=== PATIENT | female | born 1950 | race African-American/Black ===

== ENCOUNTER 2016-08-22 11:29 | Emergency (ER) | payer MEDICARE, OTHER ==
[~2016-08-22] VITALS: Ht 149.9 cm; Wt 80.0 kg
[~2016-08-22 11:29] MED LIST: AMLO5 PO; CITA20 PO; CLON.2 PO; DOCU1CAP39 PO; ENOX30P SQ; FERR324T4 PO; GABA300 PO; HYDRA50 PO; LABE100 PO; LEVEMIR SQ; LISI20 PO; NORC10TA2 PO; NOVOLOGSS SQ; THERM PO
[2016-08-22 11:41] VITALS: BP 211/91; PULSE 69; RESP 22; TEMP 98.4; O2SAT 97
[2016-08-22 11:45] VITALS: O2SAT 96
[2016-08-22] MEDS ORDERED: SODIUM CHLOR 0.9% 1000 ML INJ 1,000 ML IV SCH (11:50)
[2016-08-22] MEDS ORDERED: SODIUM CHLORIDE 0.9% FLUSH 10 ML FLUSH IVF PRN (12:00)
--- NOTE | 2016-08-22 12:00 | PD ---
HPI Chief Complaint: Altered Mental Status Time Seen by Provider: 11:32 Travel History International Travel<30 days: No Contact w/Intl Traveler<30days: No Traveled to known affect area: No History of Present Illness HPI The patient is a 66-year-old [place] female who presents to the emergency department for altered mental status from the assisted living facility. Upon arrival the patient is oriented to person and year, but not the month, vice president of news, or current location. According to EMS, the patient's baseline is oriented 4 at the assisted living facility. The patient denies any physical complaints, however, EMS states the patient was sent to the emergency department for altered mental status. Patient has a known history of diabetes, blood glucose was 125 prior to arrival. The patient is a poor historian and no further information is obtainable from the patient. PFSH Past Medical History Hx Anticoagulant Therapy: Yes (ASPIRIN 81 DAILY) Arthritis: Yes Asthma: No Autoimmune Disease: No Blood Disorders: No Bipolar Disorder: Yes Anxiety: Yes Depression: Yes Heart Rhythm Problems: Yes Cancer: No Cardiac Catheterization: Yes (STENT X 2) Cardiovascular Problems: Yes (PVD) High Cholesterol: Yes Chemotherapy: No Chest Pain: Yes Congestive Heart Failure: No COPD: No Cerebrovascular Accident: No Diabetes: Yes Diminished Hearing: Yes Endocrine: Yes Gastrointestinal Disorders: Yes GERD: Yes Genitourinary: Yes (INCONTINENCE) Headaches: Yes Hepatitis: Yes (HEP C) Hiatal Hernia: No Hypertension: Yes Immune Disorder: No Kidney Stones: No Musculoskeletal: Yes Neurologic: Yes Psychiatric: Yes Reproductive: No Respiratory: No Migraines: No Myocardial Infarction: No Radiation Therapy: No Renal Failure: No Seizures: No Shingles: Yes Sickle Cell Disease: No Sleep Apnea: No Thyroid Disease: No Ulcer: No Past Surgical History Abdominal Surgery: No AICD: No Appendectomy: Yes Arteriovenous Shunt: No Cardiac Surgery: Yes (STENTS) Cholecystectomy: No Ear Surgery: No Endocrine Surgery: No Eye Surgery: Yes (BILATERAL CATARACTS) Genitourinary Surgery: No Gynecologic Surgery: Yes (HYSTER) Hysterectomy: Yes Insulin Pump: No Joint Replacement: No Neurologic Surgery: Yes (CAROTID ENDARTERECTOMY) Oral Surgery: No Pacemaker: No Thoracic Surgery: No Other Surgery: Yes (R GREAT TOE AND R PINKY TOE AMPUTATED-ALL L TOES AMPUTATED. ) Social History Alcohol Use: No Tobacco Use: No Substance Use: No Allergies-Medications (Allergen,Severity, Reaction): Coded Allergies: Penicillin (Verified Allergy, Severe, SWELLING, 08/22/16) Reported Meds & Prescriptions Reported Meds & Active Scripts Active Reported Zofran (Ondansetron HCl) 4 Mg Tab 4 Mg PO Q6HR PRN Ventolin Hfa 18 GM Inh (Albuterol Sulfate) 90 Mcg/Act Aer 2 Puff INH Q2HR PRN Natures Tears Opth Drops (Artificial Tear Solution Opth Drops) 0.1-0.3% Soln 1 Drop EACH EYE DAILY PRN Milk of Magnesia Liq (Magnesium Hydroxide) 400 Mg/5 Ml Susp 30 Ml PO DAILY PRN Duoneb (Ipratropium-Albuterol Neb) 0.5-2.5 Mg/3 Ml Neb 3 Ml NEB Q12HR PRN Guaifenesin Liq (Guaifenesin) 100 mg/5 ML Soln 200 Mg PO Q6H PRN Glucose Gel (Dextrose) 40 % Gel 1 Tube PO ONCE PRN Glucagon Emergency Inj Kit (Glucagon (Rdna) Inj Kit) 1 Mg Kit 1 Mg IM ONCE PRN If unable to stabilizer blood sugar with glucolse, notify Dulcolax Supp (Bisacodyl) 10 Mg Supp 10 Mg MS DAILY PRN Diphenhydramine (Diphenhydramine HCl) Unknown Strength Tab 1 Tab PO Q8HR PRN Baclofen 10 Mg Tab 10 Mg PO Q8HR PRN Novolog Inj (Insulin Aspart) 1,000 Unit/10 Ml Vial 0 SQ ACHS Sliding Scale: if 200-250=2 units,251-300=4 units,301-350=6 units,351-400=8 units,401-450=10 units, >450=12 units and call Neurontin (Gabapentin) 300 Mg Cap 300 Mg PO TID Hydralazine (Hydralazine HCl) 100 Mg Tab 100 Mg PO Q8HR Take with meals Oxycontin (Oxycodone HCl) 10 Mg Tab 10 Mg PO Q12HR Levemir Inj (Insulin Detemir) 1,000 unit/ 10 ML Vial 30 Units SQ BID Do not mix with any other Insulin. Labetalol (Labetalol HCl) 300 Mg Tab 300 Mg PO BID Iron (Ferrous Sulfate) 325 Mg Tab 325 Mg PO BID Genteal Tears Opth Drops (Artificial Tears Opth Drops) 0.1-0.2-0.3% Soln 1 Drop EACH EYE BID Colace (Docusate Sodium) 100 Mg Cap 100 Mg PO BID Hold for loose stool Xalatan Opth Drops (Latanoprost) 0.005% Drops 1 Drop RIGHT EYE HS Nifedipine ER (Nifedipine) 90 Mg Tab 90 Mg PO DAILY Multi-Vitamin/Minerals (Multiple Vitamins W/ Minerals) 1 Tab Tab 1 Tab PO DAILY Lasix (Furosemide) 20 Mg Tab 20 Mg PO EVERY OTHER DAY Celexa (Citalopram Hydrobromide) 10 Mg Tab 10 Mg PO HS Calcitriol 0.25 Mcg Cap 0.25 Mcg PO DAILY Atorvastatin (Atorvastatin Calcium) 40 Mg Tab 40 Mg PO HS Aspirin Adult Low Strength (Aspirin) 81 Mg Tabdr 81 Mg PO DAILY Review of Systems ROS Limitations: Altered Mental Status, Poor Historian Except as stated in HPI: all other systems reviewed are Neg Physical Exam Narrative GENERAL: Awake, alert, 66-year-old female who appears her stated age and is in no acute respiratory distress. SKIN: Warm and dry. HEAD: Atraumatic. Normocephalic. EYES: Pupils equal and round. Pupils are 1-2 mm bilateral. EOMs are intact. ENT: No nasal bleeding or discharge. Slightly dry mucous membranes. NECK: Trachea midline. No JVD. Scar on the right aspect of the neck noted. CARDIOVASCULAR: Regular rate and rhythm. No murmur appreciated. RESPIRATORY: No accessory muscle use. Clear to auscultation. Breath sounds equal bilaterally. GASTROINTESTINAL: Abdomen soft, obese, no rebound tenderness. MUSCULOSKELETAL: Bilateral BKA's. No erythema or dehiscence of the wounds noted. Back: No CVA tenderness. No obvious cubitus ulcers. NEUROLOGICAL: Awake and alert. No obvious cranial nerve deficits. Motor grossly within normal limits. Normal speech. Patient is oriented to person and year, but not current location, month, or strawberry grower. PSYCHIATRIC: Appears confused. Keeps saying mama to every health care provider who enters the room. Data Data Last Documented VS Vital Signs Date Time Temp Pulse Resp B/P Pulse Ox O2 Delivery O2 Flow Rate FiO2 08/22/16 11:41 98.4 69 22 211/91 97 Orders Electrocardiogram (08/22/16 11:50) Complete Blood Count With Diff (08/22/16 11:50) Comprehensive Metabolic Panel (08/22/16 11:50) Creatine Kinase (Cpk) (08/22/16 11:50) Prothrombin Time / Inr (Pt) (08/22/16 11:50) Act Partial Throm Time (Ptt) (08/22/16 11:50) Troponin I (08/22/16 11:50) Thyroid Stimulating Hormone (08/22/16 11:50) Urinalysis - C+S If Indicated (08/22/16 11:50) Chest, Single Ap (08/22/16 11:50) Ct Brain W/O Iv Contrast(Rout) (08/22/16 11:50) Blood Glucose (08/22/16 11:50) Ecg Monitoring (08/22/16 11:50) Iv Access Insert/Monitor (08/22/16 11:50) Oximetry (08/22/16 11:50) Sodium Chloride 0.9% Flush (Ns Flush) (08/22/16 12:00) Sodium Chlor 0.9% 1000 Ml Inj (Ns 1000 M (08/22/16 11:50) Labs Laboratory Tests Test 08/22/16 12:00 White Blood Count 9.0 TH/MM3 Red Blood Count 3.90 MIL/MM3 Hemoglobin 10.2 GM/DL Hematocrit 30.7 % Mean Corpuscular Volume 78.8 FL Mean Corpuscular Hemoglobin 26.2 PG Mean Corpuscular Hemoglobin 33.3 % Concent Red Cell Distribution Width 16.7 % Platelet Count 257 TH/MM3 Mean Platelet Volume 8.4 FL Neutrophils (%) (Auto) 77.8 % Lymphocytes (%) (Auto) 16.9 % Monocytes (%) (Auto) 4.2 % Eosinophils (%) (Auto) 0.6 % Basophils (%) (Auto) 0.5 % Neutrophils # (Auto) 7.0 TH/MM3 Lymphocytes # (Auto) 1.5 TH/MM3 Monocytes # (Auto) 0.4 TH/MM3 Eosinophils # (Auto) 0.1 TH/MM3 Basophils # (Auto) 0.0 TH/MM3 CBC Comment DIFF FINAL Differential Comment Prothrombin Time 11.4 SEC Prothromb Time International 1.0 RATIO Ratio Activated Partial 28.0 SEC Thromboplast Time Urine Color YELLOW Urine Turbidity CLEAR Urine pH 7.0 Urine Specific [place] 1.013 Urine Protein 300 mg/dL Urine Glucose (UA) NEG mg/dL Urine Ketones NEG mg/dL Urine Occult Blood NEG Urine Nitrite NEG Urine Bilirubin NEG Urine Urobilinogen 2.0 MG/DL Urine Leukocyte Esterase NEG Urine RBC 9 /hpf Urine WBC 3 /hpf Urine Squamous Epithelial 1 /hpf Cells Microscopic Urinalysis Comment CATH-CULT NOT IND Sodium Level 141 MEQ/L Potassium Level 4.8 MEQ/L Chloride Level 107 MEQ/L Carbon Dioxide Level 28.1 MEQ/L Anion Gap 6 MEQ/L Blood Urea Nitrogen 17 MG/DL Creatinine 1.12 MG/DL Estimat Glomerular Filtration 59 ML/MIN Rate Random Glucose 100 MG/DL Calcium Level 9.4 MG/DL Total Bilirubin 0.6 MG/DL Aspartate Amino Transf 22 U/L (AST/SGOT) Alanine Aminotransferase 14 U/L (ALT/SGPT) Alkaline Phosphatase 69 U/L Total Creatine Kinase 182 U/L Troponin I LESS THAN 0.02 NG/ML Total Protein 8.2 GM/DL Albumin 3.2 GM/DL Thyroid Stimulating Hormone 1.370 uIU/ML [address] [place] [address] Medical Decision Making Medical Screen Exam Complete: Yes Emergency Medical Condition: Yes Medical Record Reviewed: Yes Interpretation(s) EKG reveals normal sinus rhythm with a rate of 70. Laboratory Tests Test 08/22/16 12:00 White Blood Count 9.0 TH/MM3 Red Blood Count 3.90 MIL/MM3 Hemoglobin 10.2 GM/DL Hematocrit 30.7 % Mean Corpuscular Volume 78.8 FL Mean Corpuscular Hemoglobin 26.2 PG Mean Corpuscular Hemoglobin 33.3 % Concent Red Cell Distribution Width 16.7 % Platelet Count 257 TH/MM3 Mean Platelet Volume 8.4 FL Neutrophils (%) (Auto) 77.8 % Lymphocytes (%) (Auto) 16.9 % Monocytes (%) (Auto) 4.2 % Eosinophils (%) (Auto) 0.6 % Basophils (%) (Auto) 0.5 % Neutrophils # (Auto) 7.0 TH/MM3 Lymphocytes # (Auto) 1.5 TH/MM3 Monocytes # (Auto) 0.4 TH/MM3 Eosinophils # (Auto) 0.1 TH/MM3 Basophils # (Auto) 0.0 TH/MM3 CBC Comment DIFF FINAL Differential Comment Prothrombin Time 11.4 SEC Prothromb Time International 1.0 RATIO Ratio Activated Partial 28.0 SEC Thromboplast Time Urine Color YELLOW Urine Turbidity CLEAR Urine pH 7.0 Urine Specific [place] 1.013 Urine Protein 300 mg/dL Urine Glucose (UA) NEG mg/dL Urine Ketones NEG mg/dL Urine Occult Blood NEG Urine Nitrite NEG Urine Bilirubin NEG Urine Urobilinogen 2.0 MG/DL Urine Leukocyte Esterase NEG Urine RBC 9 /hpf Urine WBC 3 /hpf Urine Squamous Epithelial 1 /hpf Cells Microscopic Urinalysis Comment CATH-CULT NOT IND Sodium Level 141 MEQ/L Potassium Level 4.8 MEQ/L Chloride Level 107 MEQ/L Carbon Dioxide Level 28.1 MEQ/L Anion Gap 6 MEQ/L Blood Urea Nitrogen 17 MG/DL Creatinine 1.12 MG/DL Estimat Glomerular Filtration 59 ML/MIN Rate Random Glucose 100 MG/DL Calcium Level 9.4 MG/DL Total Bilirubin 0.6 MG/DL Aspartate Amino Transf 22 U/L (AST/SGOT) Alanine Aminotransferase 14 U/L (ALT/SGPT) Alkaline Phosphatase 69 U/L Total Creatine Kinase 182 U/L Troponin I LESS THAN 0.02 NG/ML Total Protein 8.2 GM/DL Albumin 3.2 GM/DL Thyroid Stimulating Hormone 1.370 uIU/ML 3rd Gen Last Impressions Head CT 08/22/16 1150 Signed Impressions: Service Date/Time: Monday, August 22, 2016 14:13 - CONCLUSION: 1. No acute intracranial abnormality is identified. Elder Mccauley MD Chest x-ray reveals cardiomegaly. No acute focal pulmonary infiltrate or pulmonary vascular congestion. Differential Diagnosis Differential diagnosis includes delirium, UTI, pneumonia, subdural hemorrhage, hyponatremia, encephalopathy, dehydration. Narrative Course IV was established, labs are drawn and sent, and the patient was placed on cardiac telemetry monitoring and continuous pulse oximetry monitoring. UA was sent to lab. Chest x-ray was obtained. CT of the brain was obtained to rule out subdural hemorrhage. UA is unremarkable. Sodium is within normal limits, creatinine is minimally elevated. CT the brain is negative. Chest x-rays unremarkable. Laboratory evaluation is unremarkable. Patient has delirium may be secondary to medications. Vitals are stable patient is stable for transfer back to the senior living and further evaluation by their primary physician. Diagnosis Primary Impression: Altered mental status Qualified Code: R41.82 - Altered mental status, unspecified altered mental status type Additional Instructions: Please provide the patient a copy of the CT results and lab results at discharge. Follow-up with your primary physician at the senior living. Return if symptoms worsen or progress. Med/Other Pt SpecificInfo: No Change to Meds Disposition: 03 DISCHARGE TO SNF (discharge back to senior living where patient resides) Condition: Stable Puma Ramirez MD Aug 22, 2016 12:00
[2016-08-22 12:31] LABS: BASOPHIL % 0.5 % (0.0-2.0); EOSINOPHIL # 0.1 TH/MM3 (0-0.4); EOSINOPHIL % 0.6 % (0.0-4.0); HEMATOCRIT 30.7 % (35.0-46.0); HEMO FLAGS DIFF FINAL; LYMPH % 16.9 % (9.0-44.0); LYMPHOCYTE # 1.5 TH/MM3 (1.0-4.8); MEAN CELL VOLUME 78.8 FL (80.0-100.0); MEAN CORPUSCULAR HEMOGLOBIN 26.2 PG (27.0-34.0); MEAN CORPUSCULAR HGB CONC 33.3 % (32.0-36.0); MONO % 4.2 % (0.0-8.0); NEUT % 77.8 % (16.0-70.0); PLATELET COUNT 257 TH/MM3 (150-450); RED CELL DISTRIBUTION WIDTH 16.7 % (11.6-17.2)
[2016-08-22 12:34] LABS: BLOOD, URINE NEG (NEG); GLUCOSE,URINE NEG (NEG); KETONE, URINE NEG (NEG); NITRITE,URINE NEG (NEG); SQUAMOUS EPITHELIAL CELL URINE 1 /hpf (0-5); URINE COLOR YELLOW (YELLW/STRAW)
[2016-08-22 12:35] LABS: COMMENT (UR) CATH-CULT NOT IND; CULTURE IF INDICATED CATH CULTURE NOT IND
[2016-08-22 12:41] LABS: PROTHROMBIN TIME - PATIENT 11.4 SEC (9.8-11.6)
[2016-08-22 12:48] LABS: ALT (GPT) 14 U/L (10-53); ANION GAP 6 MEQ/L (5-15); AST (GOT) 22 U/L (15-37); BICARBONATE 28.1 MEQ/L (21.0-32.0); BLOOD UREA NITROGEN 17 MG/DL (7-18); CHLORIDE 107 MEQ/L (98-107); GLOMERULAR FILTRATION RATE 59 ML/MIN (>89); POTASSIUM 4.8 MEQ/L (3.5-5.1); SODIUM (NA) 141 MEQ/L (136-145)
[2016-08-22 12:58] LABS: ALKALINE PHOSPHATASE 69 U/L (45-117); CREATINE KINASE 182 U/L (26-192); TOTAL BILIRUBIN ADULT 0.6 MG/DL (0.2-1.0)
[2016-08-22] MEDS ORDERED: ATOR40TA16 PO (13:00)
[2016-08-22] MEDS ORDERED: CALC0.25 PO (13:00)
[2016-08-22] MEDS ORDERED: CELE10TA PO (13:00)
[2016-08-22] MEDS ORDERED: ASPI1TAB91 PO (13:00)
[2016-08-22] MEDS ORDERED: LATA.005%O RIGHT EYE (13:30)
[2016-08-22] MEDS ORDERED: NOVOLOGP2 SQ (13:30)
[2016-08-22] MEDS ORDERED: FERR1TAB36 PO (13:30)
[2016-08-22] MEDS ORDERED: DULC10SU3 PR (13:30)
[2016-08-22] MEDS ORDERED: OXYC-259 PO (13:30)
[2016-08-22] MEDS ORDERED: GUAI100S7 PO (13:30)
[2016-08-22] MEDS ORDERED: MILKSUS PO (13:30)
[2016-08-22] MEDS ORDERED: GLUC40GE PO (13:30)
[2016-08-22] MEDS ORDERED: COLA100C3 PO (13:30)
[2016-08-22] MEDS ORDERED: FURO1TAB62 PO (13:30)
[2016-08-22] MEDS ORDERED: BACL10TA PO (13:30)
[2016-08-22] MEDS ORDERED: MULTTAB62 PO (13:30)
[2016-08-22] MEDS ORDERED: GLUC1KIT IM (13:30)
[2016-08-22] MEDS ORDERED: HYDR-3801 PO (13:30)
[2016-08-22] MEDS ORDERED: LEVEMIR SQ (13:30)
[2016-08-22] MEDS ORDERED: ARTI1SOL EACH EYE (13:30)
[2016-08-22] MEDS ORDERED: IPRASOL NEB (13:30)
[2016-08-22] MEDS ORDERED: NEUR300C PO (13:30)
[2016-08-22] MEDS ORDERED: DIPH25TA2 PO (13:30)
[2016-08-22] MEDS ORDERED: NIFE90TA2 PO (13:30)
[2016-08-22] MEDS ORDERED: VENTAER INH (13:30)
[2016-08-22] MEDS ORDERED: LABE300T PO (13:30)
[2016-08-22] MEDS ORDERED: ARTI1SOL3 EACH EYE (13:30)
[2016-08-22] MEDS ORDERED: ZOFR4TAB PO (13:30)
[2016-08-22 14:00] VITALS: BP 198/91; PULSE 72; RESP 18; O2SAT 96
--- NOTE | 2016-08-22 14:35 | RADRPT ---
EXAM DATE/TIME: 08/22/2016 13:02 [facility] COMPARISON: CHEST SINGLE AP, March 10, 2015, 13:07. INDICATIONS : Syncope. MEDICAL HISTORY : None. SURGICAL HISTORY : None. ENCOUNTER: Initial ACUITY: 1 day PAIN SCORE: Non-responsive. LOCATION: Bilateral chest FINDINGS: The heart is enlarged. The pulmonary vascular pattern is normal. The lungs are clear. CONCLUSION: 1. Cardiomegaly. 2. No acute focal pulmonary infiltrate or pulmonary vascular congestion. Harindre Cleaning MD on August 22, 2016 at 14:17 Board Certified Radiologist. This report was verified electronically.
--- NOTE | 2016-08-22 14:37 | RADRPT ---
EXAM DATE/TIME: 08/22/2016 14:13 [facility] COMPARISON: CT PULMONARY ANGIOGRAM, March 08, 2015, 21:37. INDICATIONS : altered mental status RADIATION DOSE: 44.69 CTDIvol (mGy) MEDICAL HISTORY : Hypertension. Cardiovascular disease Diabetes mellitus type 2.Hep C SURGICAL HISTORY : Appendectomy. Hysterectomy.Bilateral leg amputee ENCOUNTER: Initial ACUITY: 1 day PAIN SCALE: 0/10 LOCATION: cranial TECHNIQUE: Multiple contiguous axial images were obtained of the head. Using automated exposure control and adj ustment of the mA and/or kV according to patient size, radiation dose was kept as low as reasonably a chievable to obtain optimal diagnostic quality images. FINDINGS: CEREBRUM: The ventricles are normal for age. No evidence of midline shift, mass lesion, hemorrhage or acute in farction. No extra-axial fluid collections are seen. POSTERIOR FOSSA: The cerebellum and brainstem are intact. The 4th ventricle is midline. The cerebellopontine angle i s unremarkable. EXTRACRANIAL: The visualized portion of the orbits is intact. SKULL: The calvaria is intact. No evidence of skull fracture. CONCLUSION: 1. No acute intracranial abnormality is identified. Elder Mccauley MD on August 22, 2016 at 14:34 Board Certified Radiologist. This report was verified electronically.
[2016-08-22 17:00] VITALS: BP 151/78; PULSE 78; RESP 18; O2SAT 95
--- NOTE | 2016-08-23 11:17 | EKG ---
Date Performed: 08/22/2016 Time Performed: 12:30:13 PTAGE: 66 years EKG: Sinus rhythm LEFT ANTERIOR FASCICULAR BLOCK MODERATE VOLTAGE CRITERIA FOR LVH, CONSIDER NORMAL VARIANT ABNORMAL E CG PREVIOUS TRACING : 02/15/2015 11.44 DOCTOR: Ethan Cm Interpretating Date/Time 08/23/2016 11:15:41
== END 2016-08-22 18:00 ==
LOC: NEPA 11:29
DX: R41.82 Altered mental status, unspecified (principal); I44.4 Left anterior fascicular block; E11.9 Type 2 diabetes mellitus without complications; E78.00 Pure hypercholesterolemia, unspecified; I10 Essential (primary) hypertension; I73.9 Peripheral vascular disease, unspecified; B19.20 Unspecified viral hepatitis C without hepatic coma; K21.9 Gastro-esophageal reflux disease without esophagitis; Z79.82 Long term (current) use of aspirin; R94.31 Abnormal electrocardiogram [ECG] [EKG]
CPT/HCPCS: 70450; 71010; 80053; 81001; 82550; 84443; 84484; 85025; 85610; 85730; 93005; 96360; 96361; 99285; J7030

== ENCOUNTER 2016-08-23 17:56 | Emergency (ER) | payer MEDICARE, OTHER ==
[~2016-08-23] VITALS: Ht 157.5 cm; Wt 100.0 kg
[~2016-08-23 17:56] MED LIST changes: -AMLO5 PO; +ARTI1SOL EACH EYE; +ARTI1SOL3 EACH EYE; +ASPI1TAB91 PO; +ATOR40TA16 PO; +BACL10TA PO; +CALC0.25 PO; +CELE10TA PO; -CITA20 PO; -CLON.2 PO; +COLA100C3 PO; +DIPH25TA2 PO; -DOCU1CAP39 PO; +DULC10SU3 PR; -ENOX30P SQ; +FERR1TAB36 PO; -FERR324T4 PO; +FURO1TAB62 PO; -GABA300 PO; +GLUC1KIT IM; +GLUC40GE PO; +GUAI100S7 PO; +HYDR-3801 PO; -HYDRA50 PO; +IPRASOL NEB; -LABE100 PO; +LABE300T PO; +LATA.005%O RIGHT EYE; -LISI20 PO; +MILKSUS PO; +MULTTAB62 PO; +NEUR300C PO; +NIFE90TA2 PO; -NORC10TA2 PO; +NOVOLOGP2 SQ; -NOVOLOGSS SQ; +OXYC-259 PO; -THERM PO; +VENTAER INH; +ZOFR4TAB PO
[2016-08-23 18:09] VITALS: BP 169/77; PULSE 69; RESP 18; TEMP 98.3; O2SAT 97
[2016-08-23 18:12] VITALS: BP 169/77; PULSE 67; RESP 18; TEMP 98.5; O2SAT 98
--- NOTE | 2016-08-23 18:29 | PD ---
HPI Chief Complaint: Altered Mental Status Time Seen by Provider: 18:16 Travel History International Travel<30 days: No Contact w/Intl Traveler<30days: No Traveled to known affect area: No History of Present Illness HPI Patient is a 66-year-old female arrives emergency room from [facility] living [facility] for altered mental status. As per [facility], returns to emergency room for evaluation of altered mental status. Reports that patient was seen in the emergency yesterday and was discharged back to skilled nursing. Patient at this time is alert to person, she is alert to year, she does not know where her present location is at this time. Patient with no complaints, denies chest pain or shortness of breath or headache. Patient is combative while in the emergency room, patient unable to provide history of present illness at this time. As per EMS, her blood sugar was 130 upon arrival to the emergency room. PFSH Past Medical History Hx Anticoagulant Therapy: Yes (ASPIRIN 81 DAILY) Arthritis: Yes Asthma: No Autoimmune Disease: No Blood Disorders: No Bipolar Disorder: Yes Anxiety: Yes Depression: Yes Heart Rhythm Problems: Yes Cancer: No Cardiac Catheterization: Yes (STENT X 2) Cardiovascular Problems: Yes (PVD) High Cholesterol: Yes Chemotherapy: No Chest Pain: Yes Congestive Heart Failure: No COPD: No Cerebrovascular Accident: No Diabetes: Yes Patient Takes Glucophage: No (denies) Diminished Hearing: Yes Endocrine: Yes Gastrointestinal Disorders: Yes GERD: Yes Genitourinary: Yes (INCONTINENCE) Headaches: Yes Hepatitis: Yes (HEP C) Hiatal Hernia: No Heparin Induced Thrombocytopen: No Hypertension: Yes Immune Disorder: No Implanted Vascular Access Dvce: Yes Kidney Stones: No Musculoskeletal: Yes Neurologic: Yes Psychiatric: Yes Reproductive: No Respiratory: No Migraines: No Myocardial Infarction: No Radiation Therapy: No Renal Failure: No Seizures: No Shingles: Yes Sickle Cell Disease: No Sleep Apnea: No Thyroid Disease: No Ulcer: No ?: Not Past Surgical History Abdominal Surgery: No AICD: No Appendectomy: Yes Arteriovenous Shunt: No Cardiac Surgery: Yes (STENTS) Cholecystectomy: No Ear Surgery: No Endocrine Surgery: No Eye Surgery: Yes (BILATERAL CATARACTS) Genitourinary Surgery: No Gynecologic Surgery: Yes (HYSTER) Hysterectomy: Yes Insulin Pump: No Joint Replacement: No Neurologic Surgery: Yes (CAROTID ENDARTERECTOMY) Oral Surgery: No Pacemaker: No Thoracic Surgery: No Other Surgery: Yes (R GREAT TOE AND R PINKY TOE AMPUTATED-ALL L TOES AMPUTATED. ) Social History Alcohol Use: No (denies) Tobacco Use: No (denies) Substance Use: No (denies) Allergies-Medications (Allergen,Severity, Reaction): Coded Allergies: Penicillin (Verified Allergy, Severe, SWELLING, 08/23/16) Reported Meds & Prescriptions Reported Meds & Active Scripts Active Reported Zofran (Ondansetron HCl) 4 Mg Tab 4 Mg PO Q6HR PRN Ventolin Hfa 18 GM Inh (Albuterol Sulfate) 90 Mcg/Act Aer 2 Puff INH Q2HR PRN Natures Tears Opth Drops (Artificial Tear Solution Opth Drops) 0.1-0.3% Soln 1 Drop EACH EYE DAILY PRN Milk of Magnesia Liq (Magnesium Hydroxide) 400 Mg/5 Ml Susp 30 Ml PO DAILY PRN Duoneb (Ipratropium-Albuterol Neb) 0.5-2.5 Mg/3 Ml Neb 3 Ml NEB Q12HR PRN Guaifenesin Liq (Guaifenesin) 100 mg/5 ML Soln 200 Mg PO Q6H PRN Glucose Gel (Dextrose) 40 % Gel 1 Tube PO ONCE PRN Glucagon Emergency Inj Kit (Glucagon (Rdna) Inj Kit) 1 Mg Kit 1 Mg IM ONCE PRN If unable to stabilizer blood sugar with glucolse, notify Dulcolax Supp (Bisacodyl) 10 Mg Supp 10 Mg [place] DAILY PRN Diphenhydramine (Diphenhydramine HCl) Unknown Strength Tab 1 Tab PO Q8HR PRN Baclofen 10 Mg Tab 10 Mg PO Q8HR PRN Novolog Inj (Insulin Aspart) 1,000 Unit/10 Ml Vial 0 SQ ACHS Sliding Scale: if 200-250=2 units,251-300=4 units,301-350=6 units,351-400=8 units,401-450=10 units, >450=12 units and call Neurontin (Gabapentin) 300 Mg Cap 300 Mg PO TID Hydralazine (Hydralazine HCl) 100 Mg Tab 100 Mg PO Q8HR Take with meals Oxycontin (Oxycodone HCl) 10 Mg Tab 10 Mg PO Q12HR Levemir Inj (Insulin Detemir) 1,000 unit/ 10 ML Vial 30 Units SQ BID Do not mix with any other Insulin. Labetalol (Labetalol HCl) 300 Mg Tab 300 Mg PO BID Iron (Ferrous Sulfate) 325 Mg Tab 325 Mg PO BID Genteal Tears Opth Drops (Artificial Tears Opth Drops) 0.1-0.2-0.3% Soln 1 Drop EACH EYE BID Colace (Docusate Sodium) 100 Mg Cap 100 Mg PO BID Hold for loose stool Xalatan Opth Drops (Latanoprost) 0.005% Drops 1 Drop RIGHT EYE HS Nifedipine ER (Nifedipine) 90 Mg Tab 90 Mg PO DAILY Multi-Vitamin/Minerals (Multiple Vitamins W/ Minerals) 1 Tab Tab 1 Tab PO DAILY Lasix (Furosemide) 20 Mg Tab 20 Mg PO EVERY OTHER DAY Celexa (Citalopram Hydrobromide) 10 Mg Tab 10 Mg PO HS Calcitriol 0.25 Mcg Cap 0.25 Mcg PO DAILY Atorvastatin (Atorvastatin Calcium) 40 Mg Tab 40 Mg PO HS Aspirin Adult Low Strength (Aspirin) 81 Mg Tabdr 81 Mg PO DAILY Review of Systems ROS Limitations: Altered Mental Status General / Constitutional: No: Fever Eyes: No: Visual changes HENT: No: Headaches Cardiovascular: No: Chest Pain or Discomfort Respiratory: No: Shortness of Breath Gastrointestinal: No: Abdominal Pain Genitourinary: No: Dysuria Musculoskeletal: No: Pain Skin: No Rash Neurologic: No: Weakness Psychiatric: No: Depression Endocrine: No: Polydipsia Hematologic/Lymphatic: No: Easy Bruising Physical Exam Narrative GENERAL: No acute distress, nontoxic SKIN: Warm and dry. HEAD: Atraumatic. Normocephalic. EYES: Pupils equal and round. No scleral icterus. No injection or drainage. ENT: No nasal bleeding or discharge. Mucous membranes pink and moist. NECK: Trachea midline. No JVD. CARDIOVASCULAR: Regular rate and rhythm. No murmur appreciated. RESPIRATORY: No accessory muscle use. Clear to auscultation. Breath sounds equal bilaterally. GASTROINTESTINAL: Abdomen soft, non-tender, nondistended. Hepatic and splenic margins not palpable. MUSCULOSKELETAL: No obvious deformities. No clubbing. B/l bka's NEUROLOGICAL: Awake and alert. No obvious cranial nerve deficits. Motor grossly within normal limits. Normal speech. PSYCHIATRIC: Patient alert to person and time, not place Data Data Last Documented VS Vital Signs Date Time Temp Pulse Resp B/P Pulse Ox O2 Delivery O2 Flow Rate FiO2 08/23/16 20:38 68 16 152/71 96 Room Air 08/23/16 18:12 98.5 Orders Complete Blood Count With Diff (08/23/16 18:22) Comprehensive Metabolic Panel (08/23/16 18:22) Urinalysis - C+S If Indicated (08/23/16 18:22) Iv Access Insert/Monitor (08/23/16 18:22) Ecg Monitoring (08/23/16 18:22) Oximetry (08/23/16 18:22) Sodium Chloride 0.9% Flush (Ns Flush) (08/23/16 18:30) Electrocardiogram (08/23/16 ) Labs Laboratory Tests Test 08/23/16 19:20 White Blood Count 9.2 TH/MM3 Red Blood Count 4.06 MIL/MM3 Hemoglobin 10.4 GM/DL Hematocrit 32.1 % Mean Corpuscular Volume 78.9 FL Mean Corpuscular Hemoglobin 25.7 PG Mean Corpuscular Hemoglobin 32.5 % Concent Red Cell Distribution Width 16.6 % Platelet Count 248 TH/MM3 Mean Platelet Volume 8.2 FL Neutrophils (%) (Auto) 70.0 % Lymphocytes (%) (Auto) 22.4 % Monocytes (%) (Auto) 6.2 % Eosinophils (%) (Auto) 0.7 % Basophils (%) (Auto) 0.7 % Neutrophils # (Auto) 6.4 TH/MM3 Lymphocytes # (Auto) 2.1 TH/MM3 Monocytes # (Auto) 0.6 TH/MM3 Eosinophils # (Auto) 0.1 TH/MM3 Basophils # (Auto) 0.1 TH/MM3 CBC Comment DIFF FINAL Differential Comment Sodium Level 140 MEQ/L Potassium Level 4.5 MEQ/L Chloride Level 106 MEQ/L Carbon Dioxide Level 26.5 MEQ/L Anion Gap 8 MEQ/L Blood Urea Nitrogen 19 MG/DL Creatinine 1.11 MG/DL Estimat Glomerular Filtration 59 ML/MIN Rate Random Glucose 86 MG/DL Calcium Level 8.5 MG/DL Total Bilirubin 0.6 MG/DL Aspartate Amino Transf 37 U/L (AST/SGOT) Alanine Aminotransferase 19 U/L (ALT/SGPT) Alkaline Phosphatase 66 U/L Total Protein 8.0 GM/DL Albumin 3.0 GM/DL MDM Medical Decision Making Medical Screen Exam Complete: Yes Emergency Medical Condition: Yes Interpretation(s) EKG at 1906: NSR at 69bpm, qt/qtc: 410/430, no acute st or t wave changes Vital Signs Date Time Temp Pulse Resp B/P Pulse Ox O2 Delivery O2 Flow Rate FiO2 08/23/16 18:12 68 18 96 Room Air 08/23/16 18:12 98.5 67 18 169/77 98 Room Air 08/23/16 18:09 98.3 69 18 169/77 97 Differential Diagnosis Dementia, acute delirium, UTI, encephalopathy, electrolyte abnormality Narrative Course Patient is a 66-year-old female who presents to emergency room from today living for altered mental status. Patient was seen yesterday and had a full workup including a CT of her brain which was unremarkable. Labs as well as UA and x-ray chest was essentially unremarkable, patient was sent back to the assisted living facility with instructions to follow-up with her primary care doctor. Patient returns today for similar symptoms. Patient is alert to person and place, cannot provide any other medical history at this time. Overall she does appear nontoxic. We'll obtain basic labs as well as UA. CBC & BMP Diagram 08/23/16 19:20 Patient alert and oriented to person and year throughout her course of ER visit. Patient did eat a full meal tray, patient with no complaints while in the emergency room. Patient is anemic on her labs, hemoglobin is similar to previous. Patient with mild dehydration, patient was given a fluid bolus. Patient did have a CAT scan of her head as well as significant workup yesterday and workup was benign. Patient currently is well-appearing with no complaints, vital signs are stable. Plan to discharge patient back to her nursing facility with instructions to follow-up with her primary care doctor. Diagnosis Primary Impression: Altered mental status Qualified Code: R41.82 - Altered mental status, unspecified altered mental status type Patient Instructions: General Instructions Additional Instructions: Please provide patient with a copy of her lab work at discharge Please follow-up with your primary care doctor and return to emergency room as needed Disposition: 01 DISCHARGE HOME Condition: Stable Geno Gastonfer Elly FORTUNE Aug 23, 2016 18:29
[2016-08-23] MEDS ORDERED: SODIUM CHLORIDE 0.9% FLUSH 10 ML FLUSH IV FLUSH PRN (18:30)
[2016-08-23 19:28] LABS: AUTOMATED NEUTROPHIL # 6.4 TH/MM3 (1.8-7.7); BASOPHIL # 0.1 TH/MM3 (0-0.2); BASOPHIL % 0.7 % (0.0-2.0); EOSINOPHIL # 0.1 TH/MM3 (0-0.4); EOSINOPHIL % 0.7 % (0.0-4.0); HEMATOCRIT 32.1 % (35.0-46.0); HEMO FLAGS DIFF FINAL; LYMPH % 22.4 % (9.0-44.0); LYMPHOCYTE # 2.1 TH/MM3 (1.0-4.8); MEAN CELL VOLUME 78.9 FL (80.0-100.0); MEAN CORPUSCULAR HEMOGLOBIN 25.7 PG (27.0-34.0); MEAN CORPUSCULAR HGB CONC 32.5 % (32.0-36.0); MONO % 6.2 % (0.0-8.0); PLATELET COUNT 248 TH/MM3 (150-450); RED BLOOD COUNT 4.06 MIL/MM3 (4.00-5.30); RED CELL DISTRIBUTION WIDTH 16.6 % (11.6-17.2); WHITE BLOOD COUNT 9.2 TH/MM3 (4.0-11.0)
[2016-08-23 19:30] VITALS: RESP 16
[2016-08-23 19:46] LABS: ALKALINE PHOSPHATASE 66 U/L (45-117); ALT (GPT) 19 U/L (10-53); ANION GAP 8 MEQ/L (5-15); AST (GOT) 37 U/L (15-37); BICARBONATE 26.5 MEQ/L (21.0-32.0); BLOOD UREA NITROGEN 19 MG/DL (7-18); CHLORIDE 106 MEQ/L (98-107); GLOMERULAR FILTRATION RATE 59 ML/MIN (>89); SODIUM (NA) 140 MEQ/L (136-145); TOTAL BILIRUBIN ADULT 0.6 MG/DL (0.2-1.0)
[2016-08-23 20:38] VITALS: BP 152/71; PULSE 68; RESP 16; O2SAT 96
[2016-08-23 20:38] LABS: POTASSIUM 4.5 MEQ/L (3.5-5.1)
[2016-08-23] MEDS ORDERED: SODIUM CHLORID 0.9% 500 ML INJ 500 ML IV ONE (21:00)
--- NOTE | 2016-08-24 14:40 | EKG ---
Date Performed: 08/23/2016 Time Performed: 19:06:01 PTAGE: 66 years EKG: Sinus rhythm WITH SINUS ARRHYTHMIA PATTERN CONSISTENT WITH PULMONARY DISEASE LEFT ANTERIOR FASCICULAR BLOCK [facility] FOR [facility] ABNORMAL ECG Compared to prior tracing no significant change PREVIOUS TRACING : 08/22/2016 12.30 DOCTOR: Jarod Stock Interpretating Date/Time 08/24/2016 14:37:35
== END 2016-08-23 23:41 | disposition home or self-care (01) ==
LOC: NEPA 17:56
DX: R41.82 Altered mental status, unspecified (principal); D64.9 Anemia, unspecified; E86.0 Dehydration; R94.31 Abnormal electrocardiogram [ECG] [EKG]; I10 Essential (primary) hypertension; E11.9 Type 2 diabetes mellitus without complications; E78.00 Pure hypercholesterolemia, unspecified; H91.90 Unspecified hearing loss, unspecified ear; Z79.4 Long term (current) use of insulin; Z79.82 Long term (current) use of aspirin; Z87.39 Personal history of other diseases of the musculoskeletal system and connective tissue; Z86.79 Personal history of other diseases of the circulatory system; Z87.19 Personal history of other diseases of the digestive system; Z87.448 Personal history of other diseases of urinary system; Z86.69 Personal history of other diseases of the nervous system and sense organs; Z86.59 Personal history of other mental and behavioral disorders
CPT/HCPCS: 80053; 85025; 93005; 99285; J7040

== ENCOUNTER → 2016-11-22 | Outpatient (CLI) | payer MEDICARE, OTHER ==
--- NOTE | 2016-11-22 11:35 | RADRPT ---
EXAM DATE/TIME: 11/22/2016 10:30 [facility] COMPARISON: No previous studies available for comparison. INDICATIONS : Left shoulder pain. NKI. MEDICAL HISTORY : Hypertension. Diabetes mellitus type 2. SURGICAL HISTORY : Carotid endarterectomy. Hysterectomy. Bilat BTK amputation. ENCOUNTER: Subsequent ACUITY: 4-6 days PAIN SCORE: 5/10 LOCATION: Left shoulder TECHNIQUE: Multiplanar, multisequence MRI examination was performed without contrast. FINDINGS: ROTATOR CUFF: There is increased signal seen at the distal supraspinatus tendon at the musculotendinous junction an d into the tendon itself. Partial intrasubstance tearing needs to be suspected. A full-thickness tear is not seen. There is thickening of the distal infraspinatus tendon consistent with tendinosis. Ther e is a small area of focal signal at the musculotendinous junction at the infraspinatus which likely represents a small area of intrasubstance tearing. The teres minor and subscapularis tendons are inta ct. LABRUM: Labrum is within normal limits. MARROW/CARTILAGE: Bone marrow signal is homogeneous. Glenohumeral joint articular cartilage is within normal limits. OTHER: There is hypertrophic change of the acromioclavicular joint. The joint is aligned. Acromion is Type 1 (flat). Proximal biceps tendon is intact. There is mild joint fluid seen including fluid in the hammond bscapularis bursa. There is a mild amount of fluid in the subacromial/subdeltoid bursa. There is hype rtrophic change CONCLUSION: 1. Intrasubstance partial tearing of the distal supraspinatus and to lesser degree infraspinatus. Ful l-thickness tears are not seen. 2. Thickening of the distal infraspinatus tendon consistent with prominent tendinosis. 3. Mild amount of fluid in the joint space and subscapularis bursa. There is also fluid in the subacr omial/subdeltoid bursa. 4. Hypertrophic change at the acromioclavicular joint. Marlon Tapia MD on November 22, 2016 at 11:02 Board Certified Radiologist. This report was verified electronically.
== END ==
LOC: HRAD 10:12
PROVIDERS: ATTEND Orthopaedic Surgery Sports Medicine
DX: S46.012D Strain of muscle(s) and tendon(s) of the rotator cuff of left shoulder, subsequent encounter (principal); X58.XXXD Exposure to other specified factors, subsequent encounter
CPT/HCPCS: 73221